=== PATIENT | male | born 1980 | race Caucasian/White ===

== ENCOUNTER 2022-10-06 14:56 | Emergency (ER) | payer SELFPAY ==
[2022-10-06 17:51] LABS: ESTIMATED GFR 111 mL/min (>60)
[2022-10-06 18:23] VITALS: BP 122/82; PULSE 75
== END 2022-10-06 18:22 | disposition home or self-care (01) ==
LOC: MERGE 14:56 → JD.ED 14:56
DX: K04.7 Periapical abscess without sinus (principal); R06.00 Dyspnea, unspecified; J45.909 Unspecified asthma, uncomplicated; Z72.0 Tobacco use
CPT/HCPCS: 36415; 71046; 71046-26; 80053; 85025; 86140; 99285